=== PATIENT | male | born 1990 | race American Indian/Alaskan Native ===

== ENCOUNTER 2018-04-21 09:21 | Emergency (ER) | payer OTHER ==
[~2018-04-21] VITALS: Ht 165.1 cm; Wt 74.0 kg
[2018-04-21] MEDS ORDERED: IBUPROFEN 600MG TABLET PO ONE (11:00)
[2018-04-21] MEDS ORDERED: METHOCARBAMOL 500MG TABLET PO ONE (11:00)
[2018-04-21 11:06] VITALS: BP 140/86
== END 2018-04-21 11:51 | disposition home or self-care (01) ==
LOC: ER 09:36
DX: S39.012A Strain of muscle, fascia and tendon of lower back, initial encounter (principal); S46.811A Strain of other muscles, fascia and tendons at shoulder and upper arm level, right arm, initial encounter; V49.40XA Driver injured in collision with unspecified motor vehicles in traffic accident, initial encounter; R03.0 Elevated blood-pressure reading, without diagnosis of hypertension; Y93.89 Activity, other specified; Y92.410 Unspecified street and highway as the place of occurrence of the external cause
CPT/HCPCS: 99283